=== PATIENT | male | born 1985 | race Caucasian/White ===

== ENCOUNTER 2019-03-08 12:08 | Emergency (ER) | payer OTHER ==
[2019-03-08] MEDS ORDERED: AMOXICILLIN TR/POT CLAVULANATE 500-125 MG TAB PO ONE (12:35)
[2019-03-08] MEDS ORDERED: HYDROCODONE/ACETAMINOPHEN 5-325 MG TABLET PO ONE (12:35)
[2019-03-08] MEDS ORDERED: AMOXICILLIN TRIHYD 250 MG CAPSULE PO ONE (12:35)
[2019-03-08] MEDS ORDERED: DIPH/PERTUSS(ACELL)/TETANUS VAC/PF 0.5 ML SYR (>=10YO) IM ONE (12:35)
--- NOTE | 2019-03-08 12:37 | ER Document Report ---
ED Medical Screen (RME) - General Chief Complaint: Dog Bite Stated Complaint: DOG BITE Time Seen by Provider: 03/08/19 12:30 Mode of Arrival: Ambulatory Information source: Patient Notes: Patient was admitted to the scrotum prior to arrival. Patient with puncture wound to scrotum, and most immunizations are up-to-date. I have greeted and performed a rapid initial assessment of this patient. A comprehensive ED assessment and evaluation of the patient, analysis of test results and completion of the medical decision making process will be conducted by additional ED providers. - Related Data Allergies/Adverse Reactions: sulfamethoxazole [From Bactrim] Allergy (Verified 03/08/19 12:11) trimethoprim [From Bactrim] Allergy (Verified 03/08/19 12:11) Physical Exam - Vital signs Vitals: Temp Pulse BP Pulse Ox 97.8 F 87 147/90 H 97 03/08/19 12:15 03/08/19 12:15 03/08/19 12:15 03/08/19 12:15 - Skin Skin irregularity: other - Puncture wound to scrotum Course - Vital Signs Vital signs: Temp Pulse Resp BP Pulse Ox 97.8 F 87 147/90 H 97 03/08/19 12:15 03/08/19 12:15 03/08/19 12:15 03/08/19 12:15
--- NOTE | 2019-03-08 13:25 | RADIOLOGY REPORT (SQ) ---
EXAM DESCRIPTION: U/S SCROTUM W/DOPPLER COMPLETED DATE/TIME: 03/08/2019 1:14 pm REASON FOR STUDY: dog bite COMPARISON: None. TECHNIQUE: Static and realtime johnson scale imaging of the scrotum and testes. Selected color Doppler and spectral images recorded to document blood flow. LIMITATIONS: None. FINDINGS: RIGHT: TESTICLE: Normal size. Normal echotexture. Normal blood flow. No mass. EPIDIDYMIS: Normal. HYDROCELE OR VARICOCELE: No. HERNIA OR EXTRA-TESTICULAR MASS: No. OTHER: Mild scrotal wall skin thickening. LEFT: TESTICLE: Normal size. Normal echotexture. Normal blood flow. No mass. EPIDIDYMIS: Normal. HYDROCELE OR VARICOCELE: No. HERNIA OR EXTRA-TESTICULAR MASS: No. OTHER: Mild scrotal skin thickening. IMPRESSION: Mild scrotal wall skin thickening. Otherwise, normal ultrasound of the scrotal contents . TECHNICAL DOCUMENTATION: JOB ID: [id number] [employer]- All Rights Reserved Reading location - IP/workstation name: [email or web address]
[2019-03-08 13:27] LABS: APPEARANCE,URINE CLEAR; BILIRUBIN,URINE NEGATIVE (NEGATIVE); COLOR,URINE YELLOW; GLUCOSE, URINE NEGATIVE (NEGATIVE); KETONES,URINE NEGATIVE (NEGATIVE); LEUKOCYTE ESTERASE,URINE NEGATIVE (NEGATIVE); NITRITE,URINE NEGATIVE (NEGATIVE); PROTEIN,URINE NEGATIVE (NEGATIVE); URINE SPECIFIC GRAVITY 1.019; UROBILINOGEN,URINE NEGATIVE mg/dL (<2.0)
[2019-03-08] MEDS ORDERED: LIDOCAINE 1% INJ-PF (10 MG/ML) 30 ML SDV INJ ONE (14:34)
--- NOTE | 2019-03-08 14:41 | ER Document Report ---
ED Animal Bite - General Chief Complaint: Dog Bite Stated Complaint: DOG BITE Time Seen by Provider: 03/08/19 12:30 Mode of Arrival: Ambulatory Notes: Patient is a 33-year-old male who presents emergency department with a chief complaint of a dog bite to his left scrotal area. He was fixing an air conditioning unit at someone's house and when he turned around the homeowners dog attacked him and bit him in his groin/scrotal area. This happened around 9:30 this morning. He does have a puncture wound and a piece of skin hanging from it. There is another puncture wound, that does not have any skin hanging. He received his tetanus vaccine in triage. 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 Denies any past medical history. Does not take any medications. - Related Data Allergies/Adverse Reactions: sulfamethoxazole [From Bactrim] Allergy (Verified 03/08/19 12:11) trimethoprim [From Bactrim] Allergy (Verified 03/08/19 12:11) Past Medical History - General Information source: Patient - Social History Smoking Status: Current Every Day Smoker Frequency of alcohol use: None Drug Abuse: None Family History: Reviewed & Not Pertinent Patient has suicidal ideation: No Patient has homicidal ideation: No Renal/ Medical History: Denies: Hx Peritoneal Dialysis Review of Systems - Review of Systems Notes: REVIEW OF SYSTEMS: CONSTITUTIONAL : Denies recent illness. Denies recent unintentional weight loss. Denies fever, chills, or sweats. EENT: Denies eye, ear, throat, or mouth pain, discharge, or symptoms. Denies nasal or sinus congestion. CARDIOVASCULAR: Denies chest pain. RESPIRATORY: Denies shortness of breath, cough, congestion, difficulty breathing, or wheezing. GASTROINTESTINAL: Denies nausea, vomiting, and diarrhea. Denies abdominal pain. Denies constipation. GENITOURINARY: Denies difficulty urinating, burning, blood in urine, urgency or frequency. MUSCULOSKELETAL: Denies neck and back pain. Denies joint pain or swelling. SKIN/REPRODUCTIVE: See HPI HEMATOLOGIC : Denies easy bruising or bleeding. LYMPHATIC: Denies swollen, painful, enlarged glands. NEUROLOGICAL: Denies no numbness or tingling denies weakness. Denies headache. Denies altered mental status. Denies alteration in speech. PSYCHIATRIC: Denies stress, anxiety, alteration in sleep patterns, or depression. All other systems reviewed and negative. Physical Exam - Vital signs Vitals: Temp Pulse BP Pulse Ox 97.8 F 87 147/90 H 97 03/08/19 12:15 03/08/19 12:15 03/08/19 12:15 03/08/19 12:15 - Notes Notes: PHYSICAL EXAMINATION: GENERAL: Appears well, healthy, well-nourished, no acute distress. HEAD: Normocephalic, atraumatic. EYES: PERRL, conjunctiva normal, all extraocular movements intact, sclera nonicteric ENT: Moist mucous membranes. NECK: Supple, no noticeable swelling, redness, rash. Normal range of motion. LUNGS: Equal breath sounds bilaterally and clear to auscultation. No wheezes rales or rhonchi. CARDIOVASCULAR: S1-S2, regular rate, regular rhythm. Radial pulses 2+, normal. ABDOMEN: Normoactive bowel sounds. Soft, nontender, no guarding, no rebound tenderness, and no masses palpated. EXTREMITIES: Normal strength and range of motion, no pitting or edema. No cyanosis. NEUROLOGICAL: Moves all extremities upon command. Strength 5/5 in all extremities. PSYCH: Normal mood, normal affect. SKIN: Warm, dry. No rash, lesions, ulcerations noted. Normal skin turgor. REPRODUCTIVE: Multiple puncture wounds noted to left scrotal area. 2-1/2 cm piece of skin hanging from left scrotal area. 1 centimeter laceration noted to the area of hanging skin. Course - Re-evaluation Re-evalutation: 03/08/19 15:23 Patient was anesthetized with lidocaine. The flap of skin noted on the patient's scrotum was removed with surgical scissors. 1 suture was placed to the area of the 1 cm laceration, to bring wound edges closer together. The wound is still open so any bacteria and blood can drain. Patient will have his sutures removed in 1 week. He will follow-up with a primary care provider or the emergency department. He will be started on Augmentin. Patient's ultrasound is normal with no structure damage. He is in agreement with this plan. Verbal discharge instructions were given to the patient. They verbalized understanding. They are stable for discharge. - Vital Signs Vital signs: Temp Pulse Resp BP Pulse Ox 98.0 F 78 18 144/85 H 99 03/08/19 15:32 03/08/19 15:32 03/08/19 15:32 03/08/19 15:32 03/08/19 15:32 Procedures - Laceration/Wound Repair Left scrotum area Wound length (cm): 1 Wound's Depth, Shape: Superficial, Linear Laceration pre-procedure: Sterile PPE donned, Shur-Clens applied Anesthetic type: 1% Lidocaine Volume Anesthetic (mLs): 3 Wound explored: Clean, No foreign body removed Irrigated w/ Saline (mLs): 500 Wound Repaired With: Sutures Suture Size/Type: 5:0 Number of Sutures: 1 Layer Closure?: No Post-procedure NV exam normal: Yes Complications: No Discharge - Discharge Clinical Impression: Dog bite Qualifiers: Encounter type: initial encounter Qualified Code(s): W54.0XXA - Bitten by dog, initial encounter Scrotal laceration Qualifiers: Encounter type: initial encounter Qualified Code(s): S31.31XA - Laceration without foreign body of scrotum and testes, initial encounter Condition: Stable Disposition: HOME, SELF-CARE Instructions: Laceration Care ([facility]), Prophylactic Antibiotic ([facility]), Soap Cleansing ([facility]), Tetanus Immunization Given ([facility]) Additional Instructions: You were seen today in the emergency department after a dog bite. One stitch was placed to bring the wound edges together of your cut on your scrotum. Please have the stitch removed by her primary care provider or the emergency department in 7 to 10 days. Please make sure you wash the area twice a day with soap and water. Please make sure it stays dry. Please wear tight fitting underwear to help with any swelling. Please take ibuprofen 600 mill grams every 6 hours for the next few days to help with swelling. You are also being started on antibiotics. Make sure you take all your antibiotics as prescribed. If you notice any redness or swelling or feel the area is getting infected in the next 3 days, please return to the emergency department. Prescriptions: Amox Tr/Potassium Clavulanate [Augmentin 875-125 Tablet] 1 tab PO BID 10 Days #20 tablet Forms: Return to Work
[2019-03-08 15:35] VITALS: BP 144/85
== END 2019-03-08 15:35 | disposition home or self-care (01) ==
LOC: ER 12:08
DX: S31.35XA Open bite of scrotum and testes, initial encounter (principal); W54.0XXA Bitten by dog, initial encounter; Y93.89 Activity, other specified; Y92.009 Unspecified place in unspecified non-institutional (private) residence as the place of occurrence of the external cause; F17.200 Nicotine dependence, unspecified, uncomplicated; Z23 Encounter for immunization; Z88.3 Allergy status to other anti-infective agents
CPT/HCPCS: 99284; 81001; 76870; 93976; 90715; 12001; J3490 ×2